=== PATIENT | male | born 1950 | race Caucasian/White ===

== ENCOUNTER → 2021-07-10 | Day surgery (SDC) | payer OTHER ==
[~2021-07-10] VITALS: Ht 175.3 cm; Wt 88.5 kg
[~2021-07-10] MED LIST: AMLODIPINE-BEN1 EAC4 PO; ATORVASTATIN CA40 MG PO; COMBIGAN EYE DRO5 ML EYEBOTH; COSOPT OPTH SOL10 ML EYEBOTH; HYDROCHLOROTHIA25 MG PO; LATANOPROST2.5 ML OP; METFORMIN HCL1000 MG PO; NOVOLOG FL100 UNIT/1 SC; TOUJEO MAX300 UNIT/1 SC
== END | disposition home or self-care (01) ==
LOC: OR 06:26
DX: D50.0 Iron deficiency anemia secondary to blood loss (chronic) (principal); K57.30 Diverticulosis of large intestine without perforation or abscess without bleeding; K64.0 First degree hemorrhoids; N40.0 Benign prostatic hyperplasia without lower urinary tract symptoms; E11.21 Type 2 diabetes mellitus with diabetic nephropathy; E11.42 Type 2 diabetes mellitus with diabetic polyneuropathy; E11.39 Type 2 diabetes mellitus with other diabetic ophthalmic complication; H54.2X Low vision, both eyes, different category levels; I10 Essential (primary) hypertension; F32.9 Major depressive disorder, single episode, unspecified; F41.9 Anxiety disorder, unspecified; I69.959 Hemiplegia and hemiparesis following unspecified cerebrovascular disease affecting unspecified side; E78.5 Hyperlipidemia, unspecified; Z86.010 Personal history of colon polyps; Z79.4 Long term (current) use of insulin; Z79.899 Other long term (current) drug therapy
CPT/HCPCS: 82962; J2704; J7120